=== PATIENT | male | born 1970 | race Caucasian/White ===

== ENCOUNTER 2024-06-19 19:47 | Observation (INO) | payer BC, SELFPAY ==
[2024-06-19 15:22] VITALS: BP 180/100
[2024-06-19 15:50] LABS: % Basophils 0.3 % (0-2); % Eosinophils 1.3 % (0-6); % Immature Granulocytes 0.4 % (0-0.5); % Lymphocytes 9.9 % (20.5-51.1); % Monocytes 10.1 % (1.7-9.3); Absolute Eosinophils 0.2 10^3/uL (0-0.7); Absolute Immature Granulocytes 0.1 10^3/uL (0-0.05); Absolute Lymphocytes 1.2 10^3/uL (1.2-3.4); Absolute Monocytes 1.2 10^3/uL (0.1-0.6); Absolute Neutrophils 9.4 10^3/uL (1.4-6.5); Hematocrit 43.3 % (39.0-52.0); Hemoglobin 14.7 g/dL (13.0-18.0); Mean Corp Hgb Conc. 33.9 g/dL (33.0-37.0); Mean Corpuscular Hgb 28.5 pg (27.0-31.0); Mean Corpuscular Volume 84.1 fL (80.0-94.0); Mean Platelet Volume 9.1 fL (7.4-10.4); Nucleated Red Blood Cells % 0 % (-); Platelet Count 232 10^3/uL (130-400); Red Blood Cell Count 5.15 10^6/uL (4.70-6.10); Red Cell Dist. Width 13.5 % (11.5-14.5)
[2024-06-19 16:09] LABS: ALT (SGPT) 32 U/L (0-50); AST (SGOT) 25 U/L (17-59); Albumin 4.5 g/dl (3.5-5.0); Alkaline Phosphatase 106 U/L (38-126); Blood Urea Nitrogen 15 mg/dl (9-20); Calcium 8.8 mg/dl (8.4-10.2); Carbon Dioxide 24 mmol/L (22-30); Chloride 108 mmol/L (98-107); Glucose 90 mg/dl (70-99); Potassium 4.4 mmol/L (3.5-5.1); Sodium 142 mmol/L (135-145); Total Bilirubin 1.9 mg/dl (0.2-1.3); Total Protein 7.4 g/dl (6.3-8.2); eGFR > 60.00
[2024-06-19] MEDS: VANCOCIN 540 MG IV (16:56)
--- NOTE | 2024-06-19 17:12 | ED.GENMED ---
History of Present Illness
General
Chief Complaint: Facial Problem
Source: patient
Time Seen by Provider: 06/19/24 16:03
History of Present Illness
History of Present Illness:
53-year-old male with past medical history of hypertension hyperlipidemia presenting to the emergency department for evaluation at the request of primary care provider for evaluation after yesterday he awoke to vesicle/an oily substance on his nose,
became red and tender to the touch overnight, awoke this morning with pain, erythema and edema along the left periorbital region and starting to extend over to the right side prompting his primary care to send patient for evaluation of possible
periorbital cellulitis. Patient states he has not had any fevers and denies any history of similar. He did not take any medication for his symptoms. Patient denies any history of diabetes. He does note that over the last week or so he has had
mild URI-like symptoms and notes that he has been blowing his nose quite frequently. Patient was recently in [place] for work related travel. No known sick contacts.
Past History
Past History
ED Past Medical History: HTN, Hypercholesterolemia and Other (Kidney stones)
ED Past Surgical History: Appendectomy, Orthopedic and Other (Bariatric surgery 2014)
Social History
Tobacco: Non-smoker
Alcohol: Occasional
Drug: None
Personal:
Living: with family
Employment: Employed
Family History
Family History: Hypertension
Review of Systems
Review of Systems
All Other Systems: ROS reviewed and negative except as documented in HPI and ROS
Phy Exam
Physical Exam
Physical Exam:
GENERAL: Alert , in no apparent distress
HEAD: NCAT
EYE: clear conjunctiva
NECK: Supple, no significant adenopathy.
ENT: o/p clr, mmm. There are multiple small vesicles to the tip of the nose extending laterally along the nasal bridge, there is erythema on both the right and left side of the maxilla but the left side does extend into the periorbital spaces with
increased warmth, erythema and tenderness
CARDIAC: Regular rate and rhythm .
LUNGS: Clear breath sounds bilaterally, no acute respiratory distress, no wheezes/rales/rhonchi
NEUROLOGICAL: Alert and oriented
SKIN: Warm and dry, skin intact.
MUSCULOSKELETAL: well perfused.
PSYCH: Normal and appropriate interaction.
Scores
Heart Failure Risk
Heart Failure Risk Score: Not Applicable
Heart Score for Chest Pain Patients
STEMI patient?: Not applicable
Withdrawal Assessment of Alcohol
Withdrawal Assessment Completed?: Not applicable
Sepsis
Sepsis Screening
Sepsis Assessment: Sepsis Ruled Out
Sepsis Screen
Sepsis Screen: Sepsis Ruled Out
Date: 06/20/24
Time: 09:45
Course
Orders/Labs/Results
Orders:
Orders
06/19/24 Dinner
Regular
At Your Request: Full Participation
Does patient need a safe tray?: No
06/19/24 15:33
CMP [Comprehensive Metabolic Panel] Urgent
Complete Blood Count/With Diff Urgent
06/19/24 16:09
CT Facial Bones W/ Iv Contrast Urgent
Comment:
Reason For Exam: left sided periorbital edema/erythema
06/19/24 16:22
Vancomycin [Vancocin] 2,000 mg 0.9% Sodium Chloride 500 ml [Nss] 500 ml IV NOW
06/19/24 16:51
Wound Culture [Wound/Abscess/Other Culture] Urgent
DAWSON Source: Face
Specimen Description: Left
Date Specimen was Collected: 06/19/24
Time Specimen was Collected: 16:21
06/19/24 19:26
Admit/Transfer Patient As Directed
Co-Sign Provider:
Level of Care: Observation services
Assign to:: Medical/Surgical
Physician / Group: hospitalist
Diagnosis: cellulitis
Code Status As Directed
Resuscitation Status: Full Code
PRN Pain Medication Management As Directed
May give lesser potent ordered pain med per pt: Yes
preference::
Protocol:: Medication orders for pain may be administered in a
manner that supports deferring to patient preference
when the pt is:
- Requesting an ordered lesser potent pain medication.
Least to most potent pain medications are defined
as: acetaminophen < NSAID < tramadol < opioids
(morphine, oxycodone, hydromorphone).
- Requesting a lesser dose of the same medication IF
ORDERED.
- Requesting a less intrusive route of administration
if both routes are prescribed by the provider (PO <
IV).
06/19/24 21:18
Acetaminophen [Tylenol] 650 mg PO Q4HPRN PRN
Bisacodyl [Dulcolax] 10 mg RECTAL [id number] PRN
Diphenhydramine [Benadryl] 25 mg PO DAILYPRN PRN
Docusate W/Senna [Senokot-S] 1 tablet PO BIDPRN PRN
Ketorolac [Toradol] 10 mg IV Q6HPRN PRN
Ondansetron Injectable [Zofran] 4 mg IV Q6HPRN PRN
Polyethylene Glycol Powder [Miralax] 17 grams PO DAILYPRN PRN
VANCOMYCIN Pharmacy to Dose [VANCOCIN Pharmacy to Dose] 1 each Pharmacy To Prepare [Call Pharmacy To Prepare] 0 ml IV PER PROTOCOL
06/19/24 21:18
Activity As Directed
Activity Level: With Assistance
Vital Signs As Directed
Frequency: Per unit guidelines
DX Deep Vein Thrombosis Video Routine
06/19/24 21:44
Oxymetazoline HCl [Afrin Nasal [place]] See Dose Instructions NASAL DAILYPRN PRN
06/20/24 05:24
Basic Metabolic Panel IN AM
Complete Blood Count/No Diff IN AM
06/20/24 08:00
Olmesartan Medoxomil [Benicar] 20 mg PO DAILY
06/20/24 18:00
Enoxaparin Sodium [Lovenox] 40 mg SC QPM
Abnormal Lab Results
06/19/24
15:33
WBC 12.0 H 10^3/uL
(4.8-10.8)
Abs Immat Gran (auto) 0.1 H 10^3/uL
(0-0.05)
Absolute Neuts (auto) 9.4 H 10^3/uL
(1.4-6.5)
Absolute Monos (auto) 1.2 H 10^3/uL
(0.1-0.6)
Neutrophils % 78.0 H %
(42.2-75.2)
Lymphocytes % 9.9 L %
(20.5-51.1)
Monocytes % 10.1 H %
(1.7-9.3)
Chloride 108 H mmol/L
(98-107)
Total Bilirubin 1.9 H mg/dl
(0.2-1.3)
06/19/24 15:33
06/19/24 15:33
Vital Signs
Initial and Last Documented VS:
Initial Vital Signs
Temp Pulse Resp BP Pulse Ox
98.5 F 80 18 180/100 99
06/19/24 15:22 06/19/24 15:22 06/19/24 15:22 06/19/24 15:22 06/19/24 15:22
Last Documented Vital Signs
Temp Pulse Resp BP Pulse Ox
98.0 F 69 16 152/86 97
06/20/24 07:11 06/20/24 07:11 06/20/24 07:11 06/20/24 07:11 06/20/24 07:11
MDM/Problems Addressed
Differential Diagnosis Includes:
Shingles, preseptal cellulitis, orbital cellulitis, MRSA/staph infection
MDM/Problems Addressed:
53-year-old male presenting to the ER for evaluation of vesicular eruption to his nose combined with erythema on both the right and left side of the maxillary region but erythema extends into the periorbital space on the left. Given there is
erythema on both sides of the face my suspicion for shingles is quite low. Suspect more likely a preseptal/orbital cellulitis likely caused by patient's recent upper respiratory infection. Will obtain CT scan to evaluate for any possible abscess
formation. Vancomycin ordered for antibiotic coverage. Plan for admission given rapid progression of symptoms.
*Radiology
Radiology exam reviewed: radiology read reviewed
*Pulse Oximetry
Patient hypoxic: no
*Critical Care Note
Total Time (30-74mins, 75-104mins- exclusive of procedures): Not Applicable
Patient Management
Discussion with other providers: Hospitalist
Escalation/DeEscalation of care consider admission/obs:
CT scanning is most consistent with left preseptal cellulitis. There is no abscess formation. Will continue IV antibiotics. Hospitalist team accepts for continued evaluation and treatment.
ED Attending Note
-
Portions of this chart may have been created with voice recognition software.� Occasional wrong word or��sound alike� substitutions may have occurred due to the inherent limitations of voice recognition software.
Discharge Plan
Departure
Patient Disposition: Admit
Date of Disposition: 06/19/24
Time of Disposition: 19:03
Presentation/result/management discussed w/ accepting MD/DO: Hospitalist
Discharge Problem:
Preseptal cellulitis of left eye
Interventions
Interventions:
*Risk Screen - Suicide Last Done: 06/19/24 21:30
*Neglect/Abuse Screening Last Done: 06/19/24 15:22
*ED COVID-19 Vaccine History Last Done: 06/19/24 21:30
*Nursing Disposition Last Done: 06/19/24 21:21
ED-Skin Assessment Last Done: 06/19/24 16:58
Discharge Date and Time
Discharge Date/Time: 06/19/24 21:21
[2024-06-19 19:11] VITALS: BP 180/78
--- NOTE | 2024-06-19 19:16 | HPS.HSE ---
Family Physician
-
Family Physician: Cornelius Elaine
Chief Complaint
-
Facial pain
History of Present Illness
This is a 53-year-old male with past medical history significant for hypertension, presenting to the emergency department with facial pain and redness.
Patient reported that onset of symptoms began about 36 hours ago. He reported that he started having brown droplets over his nose that were painful. He had been having some nasal congestion and has been having dry nose and bleeding and crusted
nose which he has been wiping for a few days prior to this. He reported left eye slept overnight and woke up this morning he started having pain in his left jaw and this morning it went over to his face with redness on the bilateral maxillary
regions as well as above the left eyelid. At rest he has no pain but with color change he does notice some tenderness. Reports having chills. Denies fevers. He denies any vision changes or eye pain. He denies any headache.
Patient has not been hospitalized recently. He has not been any antibiotics. He has no history of diabetes. He has no history of cancer. He has no history of immunosuppression.
In ED he was afebrile. Blood pressure was 180/90 with a pulse of 80 satting 99% on room air. He had leukocytosis to 12 CBC otherwise normal. Electrolytes BUN/creatinine were all within the normal range. CT facial shows mild left periorbital soft
tissue swelling and inflammation. No abscess identified
Medical History
Past Medical History
Past Medical History: Reports HTN
Past Surgical History: Reports Appendectomy
Additional Past Surgical History:
Bariatric surgery
Social History
Tobacco: Non-smoker
Alcohol: Occasional
Drug: None
Personal:
Living: With Family
Employment: Employed
Family History
Family History: Not pertinent
Allergies / Home Medications
Allergies reflects when Allergies were last updated in [employer].
Home Medications with original date entered in [employer]
Allergy/Medication List:
Allergies
Allergy/AdvReac Type Severity Reaction Status Date / Time
penicillin V Allergy unknown as Verified 06/19/24 16:25
a child,
tolerates
amoxicillin
Home Medications
diphenhydramine HCl 25 mg capsule (Benadryl) 25 mg PO DAILYPRN PRN allergies 06/19/24
olmesartan 20 mg tablet 20 mg PO DAILY 06/19/24
oxymetazoline 0.05 % nasal mist (Afrin (oxymetazoline)) 1 spray intranasal DAILYPRN PRN allergies 06/19/24
therapeutic multivitamin 1 tab PO DAILY 06/19/24
Review of Systems
-
History Source: Patient
Constitutional: Reports Chills
EENT: Reports No Symptoms
Respiratory: Reports No Symptoms
Cardiac: Reports No Symptoms
Abdomen/GI: Reports No Symptoms
: Reports No Symptoms and Suprapubic Tube
Musculoskeletal: Reports No Symptoms
Skin: Reports No Symptoms
Neurological: Reports No Symptoms
Endocrine: Reports No Symptoms
Hematologic/Lymphatic: Reports No Symptoms
Psych: Reports No Symptoms
Physical Exam
Vital Signs
Vital Signs
Temp Pulse Resp BP Pulse Ox
98.5 F 88 20 180/78 97
06/19/24 15:22 06/19/24 19:11 06/19/24 19:11 06/19/24 19:11 06/19/24 19:11
Physical Exam
General: Well Developed, Well Nourished, Comfortable and Obese
HEENT: Anicteric, Moist mucous membranes, Atraumatic, PERRLA and Other (facial erythema including the nasal bridge, bilateral maxillary regions); No No Ptosis, Pharyngeal Erythema, Neck Nontender or Oxygen
Respiratory: Clear
Cardiac: S1/S2 and Regular Rhythm
Breast: Deferred by me
GI: Soft, Non Tender, Non Distended and Normal Bowel Sounds
Rectal: Deferred by Provider
Genito-urinary: Deferred by me
Musculoskeletal: No Clubbing, No Cyanosis and No Edema
Skin: Warm
Neuro: AO x 3 and Nonfocal/grossly intact
Hematologic/Lymphatic: No Lymphadenopathy
Psych: Calm
Laboratory Results
-
06/19/24 15:33
06/19/24 15:33
Laboratory Results
Total Bilirubin 1.9 mg/dl (0.2-1.3) H 06/19/24 15:33
AST 25 U/L (17-59) 06/19/24 15:33
ALT 32 U/L (0-50) 06/19/24 15:33
Alkaline Phosphatase 106 U/L (38-126) 06/19/24 15:33
Data Reviewed
-
CT Scan: Report Reviewed by me
Lab Data: Labs Reviewed by me
Old Records: Reviewed
Impression/Plan
-
IMPRESSION:
53-year-old male with past medical history significant for hypertension presenting to the emergency department with chills and found to have preseptal cellulitis. This appears to have began as impetigo over the nose and has spread to the bilateral
maxillary regions. He had chills but no fevers. There is mild leukocytosis. He is hemodynamically stable and otherwise well-appearing. No vision changes and no eye pain. Denies any headache.
PLAN:
1. Preseptal cellulitis - Afebrile, mild leukocytosis. No immunosuppression. No increased risk factors for resistance. CT with ild left periorbital soft tissue swelling and inflammation. No abscess identified
- admit to med/surg
- blood cultures if febrile
- continue with IV vancomycin for now
- pain control
- serial examinations
- continue patients olmesartan
DVT PPX - lovenox sq
code status - Full code
[2024-06-19 22:10] VITALS: BP 168/93; BMI 41.9
[2024-06-19 23:18] VITALS: BP 148/80
[2024-06-20] MEDS: VANCOCIN 530 MG IV (05:42)
[2024-06-20 06:31] LABS: Hematocrit 39.5 % (39.0-52.0); Hemoglobin 13.3 g/dL (13.0-18.0); Mean Corp Hgb Conc. 33.7 g/dL (33.0-37.0); Mean Corpuscular Hgb 28.4 pg (27.0-31.0); Mean Corpuscular Volume 84.4 fL (80.0-94.0); Mean Platelet Volume 9.4 fL (7.4-10.4); Platelet Count 200 10^3/uL (130-400); Red Blood Cell Count 4.68 10^6/uL (4.70-6.10); Red Cell Dist. Width 13.4 % (11.5-14.5); White Blood Cell Count 10.1 10^3/uL (4.8-10.8)
[2024-06-20 07:06] LABS: Blood Urea Nitrogen 11 mg/dl (9-20); Calcium 8.4 mg/dl (8.4-10.2); Carbon Dioxide 24 mmol/L (22-30); Chloride 106 mmol/L (98-107); Estimated Creatinine Clearance > 125 ml/min; Glucose 91 mg/dl (70-99); Potassium 4.2 mmol/L (3.5-5.1); Sodium 141 mmol/L (135-145); eGFR > 60.00
[2024-06-20 07:11] VITALS: BP 152/86
[2024-06-20] MEDS: BENICAR 20 MG PO (08:32)
--- NOTE | 2024-06-20 09:18 | W.PN.HOSP.TC ---
Today's Communication/Plan
-
See plan
Assessment / Plan
Assessment / Plan
53-year-old male with past medical history significant for hypertension presenting to the emergency department with chills and found to have preseptal cellulitis. This appears to have began as impetigo over the nose and has spread to the bilateral
maxillary regions. He had chills but no fevers. There is mild leukocytosis. He is hemodynamically stable and otherwise well-appearing. No vision changes and no eye pain. Denies any headache.
Gen: NAD, AAOx3.
Eyes: EOMI, PERRLA, no scleral icterus.
Neck: supple.
CV: RRR, +S1/S2, no m/r/g.
Resp: CTAB, no rales, wheezes, or rhonchi.
Abd: +BS, soft, NT, ND
Skin: Preseptal/facial cellulitis
Neuro: CN 2-12 intact, non-focal.
Psych: Normal mood and affect.
CT facial bones: Mild left periorbital soft tissue swelling and inflammation. No abscess identified. Mild bilateral cervical and submental lymphadenopathy. Likely reactive. Mild nonacute sinusitis.
Preseptal cellulitis:
-Afebrile, mild leukocytosis (now resolved). No immunosuppression. No increased risk factors for resistance.
-CT above
-cont IV vanco
Other problems:
Essential HTN: cont ARB
Morbid obesity due to excess calories
FULL/Lovenox
Anticipated Discharge: 24 - 48 hours
Subjective/Interval History
-
Date of Service: June 20, 2024
No new complaints. Patient reports his facial cellulitis is improving.
Objective Data
-
Labs:
Laboratory Results
06/20/24
05:24
WBC 10.1
Hgb 13.3
Hct 39.5
Plt Count 200
Sodium 141
Potassium 4.2
Chloride 106
Carbon Dioxide 24
BUN 11
Creatinine 0.7
Glucose 91
Calcium 8.4
Vital Signs:
Vital Signs
Temp Pulse Resp BP Pulse Ox
98.0 F 69 16 152/86 97
06/20/24 07:11 06/20/24 07:11 06/20/24 07:11 06/20/24 07:11 06/20/24 07:11
I&O
06/19/24 06/20/24 06/21/24
06:59 06:59 06:59
Intake Total 0 / 0
Balance 0 / 0
--- NOTE | 2024-06-20 11:35 | CM ---
Patient seen bedside, initial assessment completed. Patient is a 53-year-old male with past medical history significant for hypertension, presenting to the emergency department with facial pain and redness.
Patient reports that he resides w/ spouse in a 2 story split level home- 3 steps to enter the home. Patient is independent w/ ambulating, no device required. Independent w/ ADLs. No DME. Patient had skilled rehab arranged by [facility]. Home
PT about 10-12 years ago. OP therapy in the past. Denies any current OP or home services at this time.
Address, point of contact and insurance verified
PCP: Cornelius Elaine
Pharmacy: [facility] [place]
Patient is currently admitted as OBS. OOBS form verbally reviewed, patient given copy, copy placed in chart
Plan: Home; no needs likely
--- NOTE | 2024-06-20 11:52 | PHA.VAN.IN ---
Assessment
- Assessment
Renal Function: Unknown baseline
Renal Function may be Overestimated due to: Obesity. BMI = 41.9
Maximum Temperature: 98.7
Minimum Temperature: 98
AUC Dosing Plan
- Dosing Variables
Dosing Weight (kg): 117.7
Dosing CrCl (ml/min): 125
Vd coefficient (L/kg): 0.5
- Empiric Dosing
Initial / Loading Dose: Vanc 2gm 06/19 at 1656 and Vanc 1500mg 06/20 at 0542
Maintenance Regimen: Vanc 1gm IV Q8H. Begin 1400 06/20
Estimated AUC (mcg*h/mL): 496.88
Estimated Peak (mcg*h/mL): 29.35
Estimated Trough (mcg/ml): 13.76
Estimated Half Life (H): 6.4
- Monitoring
No levels ordered at this time: Consider levels after 06/21 2200 dose.
Pharmacokinetics Vancomycin I
- -
Patient Age: 53
Patient Sex: Male
Vancomycin Day #: 2
Indication: Skin And Soft Tissue
Requesting Provider: Renetta
Pertinent Antimicrobial Allergies:
PCN--unknown reaction as a child. Tolerates amoxicillin.
Height / Weight:
Height 5 ft 6 in
Actual Weight 117.707 kg
IBW in k.8
Adjusted BW in k.4
Pertinent Past Medical History: Obesity. BMI = 41.9
- Vital Signs / Lab Results
Temp Pulse Resp BP Pulse Ox
98.0 F 69 16 152/86 97
06/20/24 07:11 06/20/24 07:11 06/20/24 07:11 06/20/24 07:11 06/20/24 07:11
Lab Results - Hematology
06/19/24 06/20/24
15:33 05:24
WBC 12.0 H 10.1
Lab Results - Chemistry
06/19/24 06/20/24
15:33 05:24
BUN 15 11
Creatinine 0.8 0.7
Estimated Creat Clear > 125
Albumin 4.5
Microbiology Results
06/19/24 16:51 Wound Culture - Preliminary
Face - Left Gram Stain - Preliminary
[2024-06-20] MEDS: VANCOCIN 200 IV ×2 (13:14→21:58)
--- NOTE | 2024-06-20 14:15 | CON.ID ---
Consultation
-
Date/Time Consultation Requested: June 19, 2024 1132
Date/Time Consultation Performed: June 20, 2024 1415
Requesting Provider: Dr. Serg Anaya
Performing Provider: Dr. Alysia Link
Reason for Consultation: Periorbital cellulitis
Chief Complaint / Past History
Chief Complaint
left face swelling
History of Present Illness
53-year-old male with history of hypertension who presented to the hospital on June 19 due to increasing left facial erythema. He reports last week he had a cold. Then 2 days prior to admission he noted oily spots on the top of his nose. The
spots turned brown. He also felt crusting lesion inside his nose. Subsequently there was redness and swelling left side of his cheek that extends up to his eyebrow. No visual changes. No fevers. He was started on vancomycin. Facial CT shows
mild left periorbital cellulitis. Today he feels like the swelling has improved. No history of MRSA that he is aware of. 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
Past History
Additional Past Medical History:
Hypertension
Nephrolithiasis
Appendectomy
Allergy History:
penicillin V Allergy (Verified 06/19/24 16:25)
unknown as a child, tolerates amoxicillin
Medications Reviewed: Yes
Current Antibiotics:
Vancomycin
Social History
Tobacco: Non-Smoker
Alcohol: Occasional
Drug: None
Personal:
Living: With Family
Employment: Employed ([employer])
Family History
Family History: Not Pertinent
Review of Systems
Review of Systems
General: Chills; Negative Fever or Change in Appetite
HEENT: Negative Stiff Neck, Headache or Pharyngitis
Cardiovascular: Negative Chest Pain or Dyspnea
Respiratory: Negative Dyspnea or Cough
Gasteroenterology: Negative Nausea, Vomiting or Diarrhea
Genital / Urological: Negative Dysuria or Flank Pain
Endocrine: Negative Weakness
Neurological: Negative Dizziness
All systems: All other systems were reviewed and were negative
Vital Signs
Temp Pulse Resp BP Pulse Ox
98.0 F 69 16 152/86 97
06/20/24 07:11 06/20/24 07:11 06/20/24 07:11 06/20/24 07:11 06/20/24 07:11
Physical Exam
Physical Exam
Constitutional: No Acute Distress and Comfortable
Head: Other (Brown crusty lesions on nose bilaterally, + induration erythema left cheek to temporal to above left orbit)
Eyes: Pupils Equal, Pupils Round, No Conjunctival Hemorrhage and Sclera Anicteric
Cardiovascular: Regular Rate and S1/S2
Pulmonary: Clear
Gastrointestinal: Soft, Non Tender and Non Distended
Extremities: Negative Edema
Neurological: AO x 3
Lab / Diagnostic Study Results
06/20/24 05:24
06/20/24 05:24
Abs Immat Gran (auto) 0.1 10^3/uL (0-0.05) H 06/19/24 15:33
Absolute Neuts (auto) 9.4 10^3/uL (1.4-6.5) H 06/19/24 15:33
Absolute Lymphs (auto) 1.2 10^3/uL (1.2-3.4) 06/19/24 15:33
Absolute Monos (auto) 1.2 10^3/uL (0.1-0.6) H 06/19/24 15:33
Absolute Basos (auto) 0.0 10^3/uL (0-0.2) 06/19/24 15:33
Immature Gran % 0.4 % (0-0.5) 06/19/24 15:33
Neutrophils % 78.0 % (42.2-75.2) H 06/19/24 15:33
Lymphocytes % 9.9 % (20.5-51.1) L 06/19/24 15:33
Monocytes % 10.1 % (1.7-9.3) H 06/19/24 15:33
Eosinophils % 1.3 % (0-6) 06/19/24 15:33
Basophils % 0.3 % (0-2) 06/19/24 15:33
Microbiology Results
Micro:
06/19/24 16:51 Wound Culture - Preliminary
Face - Left Gram Stain - Preliminary
06/19/24 CT facial bones: Mild left periorbital soft tissue swelling and inflammation. No abscess identified. Mild bilateral cervical and submental lymphadenopathy. Likely reactive. Mild nonacute sinusitis.
Assessment / Plan
# Left facial erysipelas
- Agree with Vancomycin.
- Follow wound cx.
- Follow clinically
[2024-06-20 15:19] VITALS: BP 140/78
[2024-06-20] MEDS: LOVENOX 40 MG SC (17:14)
[2024-06-20 23:11] VITALS: BP 151/87
[2024-06-21] MEDS: VANCOCIN 200 IV (05:30)
[2024-06-21] MEDS: BENICAR 20 MG PO (07:20)
[2024-06-21 07:55] VITALS: BP 152/89
--- NOTE | 2024-06-21 09:42 | PHA.VAN.FU ---
Vancomycin Assessment / Plan
- Assessment
Renal Function: No New Labs Today
In the past 24 hrs, patient has been: Afebrile
- Dosing Plan
Continue: Vanc 1gm IV Q8H
- Monitoring Plan
Peak Level: 06/22 at 0030
Trough Level: 06/22 at 0530
- Follow Up
Pharmacy will continue to follow.
Vancomycin Follow UP
- -
Patient Age: 53
Patient Sex: Male
Vancomycin Day #: 3
Indication: Skin And Soft Tissue
Requesting Provider: Renetta
Pertinent Antimicrobial Allergies:
PCN--unknown reaction as a child. Tolerates amoxicillin.
Height / Weight:
Height 5 ft 6 in
Actual Weight 117.707 kg
IBW in k.8
Adjusted BW in k.4
Pertinent Past Medical History: Obesity. BMI = 41.9
- Vital Signs / Lab Results
Temp Pulse Resp BP Pulse Ox
97.3 F 75 20 152/89 100
06/21/24 07:55 06/21/24 07:55 06/21/24 07:55 06/21/24 07:55 06/21/24 07:55
Lab Results - Hematology
06/19/24 06/20/24
15:33 05:24
WBC 12.0 H 10.1
Lab Results - Chemistry
06/19/24 06/20/24
15:33 05:24
BUN 15 11
Creatinine 0.8 0.7
Estimated Creat Clear > 125
Albumin 4.5
Microbiology Results
06/19/24 16:51 Wound Culture - Final
Face - Left Streptococcus pyogenes
Gram Stain - Final
--- NOTE | 2024-06-21 09:48 | W.PN.ID1 ---
Date of Service
Date of Service: June 21, 2024
Today's Communication
Give one dose of ceftriaxone 2g x 1 at noon, then dc home on amoxicillin 1000g po tid through 06/29/24.
Assessment / Plan
# Left facial erysipelas with Group A strep.
- wound cx: Strep pyogenes.
- Cellulitis improving
- DC further Vancomycin.
- Give one dose of ceftriaxone 2g x 1 at noon, then dc home on amoxicillin 1000g po tid through 06/29/24.
Chief Complaint
-: Cellulitis
Subjective / Review of Systems
Face continues to feel better.
Vital Signs / Physical Exam
Vital Signs
Vital Signs
Temp Pulse Resp BP Pulse Ox
97.3 F 75 20 152/89 100
06/21/24 07:55 06/21/24 07:55 06/21/24 07:55 06/21/24 07:55 06/21/24 07:55
Physical Exam
Constitutional: No Acute Distress and Comfortable
Head: Other (Decreased edema left face. Lesions on nose drum drier. )
Cardiovascular: Regular Rate and S1/S2
Pulmonary: Clear
Gastrointestinal: Soft, Non Tender, Non Distended and Normal Bowel Sounds
Neurological: AO x 3
Objective Data
Lab Data
Lab Results
06/20/24 05:24
06/20/24 05:24
Estimated Creat Clear > 125 ml/min 06/20/24 05:24
Total Bilirubin 1.9 mg/dl (0.2-1.3) H 06/19/24 15:33
AST 25 U/L (17-59) 06/19/24 15:33
ALT 32 U/L (0-50) 06/19/24 15:33
Alkaline Phosphatase 106 U/L (38-126) 06/19/24 15:33
Most recent labs reviewed.
Micro Results:
06/19/24 16:51 Wound Culture - Final
Face - Left Streptococcus pyogenes
Gram Stain - Final
06/19/24 CT facial bones: Mild left periorbital soft tissue swelling and inflammation. No abscess identified. Mild bilateral cervical and submental lymphadenopathy. Likely reactive. Mild nonacute sinusitis.
Care Review
Plan reviewed with: Physician (Dr. Anaya)
--- NOTE | 2024-06-21 09:52 | W.PN.HOSP.TC ---
Today's Communication/Plan
-
d/c
Assessment / Plan
Assessment / Plan
53-year-old male with past medical history significant for hypertension presenting to the emergency department with chills and found to have preseptal cellulitis. This appears to have began as impetigo over the nose and has spread to the bilateral
maxillary regions. He had chills but no fevers. There is mild leukocytosis. He is hemodynamically stable and otherwise well-appearing. No vision changes and no eye pain. Denies any headache.
Gen: NAD, AAOx3.
Eyes: EOMI, PERRLA, no scleral icterus.
Neck: supple.
CV: RRR, +S1/S2, no m/r/g.
Resp: CTAB, no rales, wheezes, or rhonchi.
Abd: +BS, soft, NT, ND
Skin: Preseptal/facial cellulitis improved from yesterday
Neuro: CN 2-12 intact, non-focal.
Psych: Normal mood and affect.
CT facial bones: Mild left periorbital soft tissue swelling and inflammation. No abscess identified. Mild bilateral cervical and submental lymphadenopathy. Likely reactive. Mild nonacute sinusitis.
Preseptal cellulitis:
-Afebrile, mild leukocytosis (now resolved). No immunosuppression. No increased risk factors for resistance.
-WCx with strep pyogenes
-CT above
-was on IV vanco. Will receive Rocephin at 1200 today then pt can be discharged on Amoxicillin as per Dr. Link.
Other problems:
Essential HTN: cont ARB
Morbid obesity due to excess calories
FULL/Lovenox
Total time spent on d/c = 31 min. This included today's physical exam, progress note, review of laboratory and diagnostic data, preparation of discharge documents and prescriptions, and discussions about the pt's hospital course and discharge plan
with the patient and other medical sales specialist involved in the patient's care.
Anticipated Discharge: Today
Subjective/Interval History
-
Date of Service: June 21, 2024
No new complaints.
Objective Data
-
Vital Signs:
Vital Signs
Temp Pulse Resp BP Pulse Ox
97.3 F 75 20 152/89 100
06/21/24 07:55 06/21/24 07:55 06/21/24 07:55 06/21/24 07:55 06/21/24 07:55
I&O
06/20/24 06/21/24 06/22/24
06:59 06:59 06:59
Intake Total 0 / 0 960 / 960
Balance 0 / 0 960 / 960
--- NOTE | 2024-06-21 10:33 | CM ---
Patient for d/c today
No CM needs identified at this time
Plan: Home; no needs
[2024-06-21] MEDS: ROCEPHIN 2000 MG IV (11:52)
[2024-06-21] MEDS: STERILE WATER FOR INJECTION 20 ML IV (11:52)
[2024-06-21] MEDS: AFLURIA (36 mos+) 2024-2025 FORMULA 0.5 ML IM (12:02)
[2024-06-21 12:17] VITALS: BP 155/85
--- NOTE | 2024-06-21 13:33 | W.DCSUMMARY ---
Discharge Summary
Discharge Data
Date of Admission: 06/19/24
Date of Discharge: 06/21/24
-
Pending Results: No
Hospital Course
Primary diagnoses:
Preseptal/facial cellulitis
Secondary diagnoses:
Essential HTN
Morbid obesity due to excess calories
Consultants:
Infectious disease
Imaging:
CT facial bones: Mild left periorbital soft tissue swelling and inflammation. No abscess identified. Mild bilateral cervical and submental lymphadenopathy. Likely reactive. Mild nonacute sinusitis.
Hospital course: 53-year-old male who presented with a chief complaint of facial pain as outlined in H&P done on admission. The patient was noted to have preseptal/facial cellulitis. CT scan above. The patient was afebrile. He had a mild
leukocytosis that resolved. He was placed on IV vancomycin. Wound culture grew strep pyogenes. On the day of discharge she received a dose of Rocephin and was then discharged on amoxicillin through June 29, 2024.
Discharge Plan
-
Patient Disposition: Home (Routine Discharge)
Discharge Diagnosis/Procedures: Preseptal/facial cellulitis
Condition: Good
Diet: Low Cholesterol
Activity: As tolerated
Driving Restrictions: As prior to admission
Referrals:
Cornelius Elaine MD [Family Provider] - in less than 1 week
Prescriptions:
New
amoxicillin 500 mg tablet
1,000 mg PO TID Qty: 48 0RF
Continued
therapeutic multivitamin Tablet
1 tab PO DAILY
diphenhydramine HCl [Benadryl] 25 mg Capsule
25 mg PO DAILYPRN PRN (Reason: allergies)
Afrin (oxymetazoline) 0.05 % Mist
1 spray INTRANASAL DAILYPRN PRN (Reason: allergies)
olmesartan 20 mg tablet
20 mg PO DAILY
Discharge Orders:
Discharge Patient (As Directed); Ordered 06/21/24
Ordered By: Serg Anaya
Discharge Date and Time
Discharge Date/Time: 06/21/24 12:37
Print Language: CZECH
== END 2024-06-21 12:37 | disposition home or self-care (01) ==
LOC: 4 EAST ACU 19:47
PROVIDERS: ADMITTING PHYSICIAN Internal Medicine; ATTENDING PHYSICIAN Internal Medicine; CONSULT PHYSICIAN Internal Medicine Infectious Disease; EMERGENCY PHYSICIAN Student in an Organized Health Care Education/Training Program; FAMILY PHYSICIAN Family Medicine
DX: L03.211 Cellulitis of face (principal); I10 Essential (primary) hypertension; E78.5 Hyperlipidemia, unspecified; B95.0 Streptococcus, group A, as the cause of diseases classified elsewhere; R68.84 Jaw pain; E78.00 Pure hypercholesterolemia, unspecified; R23.8 Other skin changes; R09.81 Nasal congestion; E66.01 Morbid (severe) obesity due to excess calories; D72.829 Elevated white blood cell count, unspecified; J32.9 Chronic sinusitis, unspecified; A46 Erysipelas; R59.0 Localized enlarged lymph nodes; Z87.442 Personal history of urinary calculi; Z90.49 Acquired absence of other specified parts of digestive tract; Z98.84 Bariatric surgery status; Z82.49 Family history of ischemic heart disease and other diseases of the circulatory system; Z88.0 Allergy status to penicillin; Z68.41 Body mass index [BMI] 40.0-44.9, adult; Z23 Encounter for immunization
CPT/HCPCS: 70487; 80048; 80053; 85025; 85027; 87070; 87077; 87147; 87205; 90686; 96365; 96366; 99285; G0008; G0378; Q9967